=== PATIENT | female | born 1995 | race Caucasian/White ===

== ENCOUNTER 2018-04-07 07:57 | Emergency (ER) | payer BC ==
[2018-04-07] MEDS ORDERED: Tetracaine HCl/PF 0.5% 4 ML Bottle EYERT ONE (07:59)
[2018-04-07] MEDS ORDERED: Fluorescein 1 MG Ophth Strip EYERT ONE (07:59)
[2018-04-07 08:09] VITALS: BP 108/85
--- NOTE | 2018-04-07 08:27 | EDM.PDOC ---
ED HPI GENERAL MEDICAL PROBLEM - General Chief Complaint: Eye Problems Stated Complaint: EYE ABRASION Time Seen by Provider: 04/07/18 08:02 Source of Information: Reports: Patient History Limitations: Reports: No Limitations - History of Present Illness INITIAL COMMENTS - FREE TEXT/NARRATIVE: This 22 yo female patient reports to the ED with right eye irritation that began this morning. The patient reports she was noticing that her contacts were very dry yesterday, but did not have any difficulties getting the lens out. This morning, the patient reports she woke up to increased pain in her right eye. The patient denies any sensation of a foreign body in her eye at this time , but reports blurred vision in the right eye. Onset: Today Duration: Hour(s):, Constant Location: Reports: Face (right eye), Lower Extremity, Left Quality: Reports: Ache, Dull Severity: Moderate Improves with: Reports: None Worsens with: Reports: None Associated Symptoms: Reports: No Other Symptoms - Related Data Allergies Allergy/AdvReac Type Severity Reaction Status Date / Time No Known Allergies Allergy Verified 04/07/18 08:02 Home Meds: Home Meds . [No Known Home Meds] 09/12/16 [History] Past Medical History - Past Health History Medical/Surgical History: Denies Medical/Surgical History - Past Surgical History HEENT Surgical History: Reports: Oral Surgery Other HEENT Surgeries/Procedures: [place] teeth Social & Family History - Family History Family Medical History: Noncontributory - Tobacco Use Smoking Status *Q: Never Smoker Second Hand Smoke Exposure: No - Caffeine Use Caffeine Use: Reports: Coffee ED ROS GENERAL - Review of Systems Review Of Systems: ROS reveals no pertinent complaints other than HPI. ED EXAM GENERAL W FULL EYE - Physical Exam Exam: See Below Exam Limited By: No Limitations General Appearance: Alert, WD/WN, Mild Distress Eye Exam: Right Eye: Conjunctival Injection, Corneal Abrasion, Left Eye: Normal Inspection, Bilateral Eye: EOMI, PERRL Eyelids: Bilateral: Normal Appearance Conjunctiva & Sclera: Right: Injected Cornea Exam: Right: Corneal Abrasion Extraocular Movements: Bilateral: Intact Pupils: Normal Accommodation Pupillary Size: Bilateral: 5 mm Pupillary Reaction: Bilateral: Brisk Anterior Chamber: Bilateral: Normal Appearance Posterior Chamber: Bilateral: Normal Funduscopic Ears: Normal External Exam, Normal Canal, Hearing Grossly Normal, Normal TMs Nose: Normal Inspection, Normal Mucosa, No Blood Throat/Mouth: Normal Inspection, Normal Lips, Normal Teeth, Normal Gums, Normal Oropharynx, Normal Voice, No Airway Compromise Head: Atraumatic, Normocephalic Neck: Normal Inspection, Supple, Non-Tender, Full Range of Motion Respiratory/Chest: No Respiratory Distress, Lungs Clear, Normal Breath Sounds, No Accessory Muscle Use, Chest Non-Tender Cardiovascular: Normal Peripheral Pulses, Regular Rate, Rhythm, No Edema, No Gallop, No JVD, No Murmur, No Rub GI/Abdominal: Normal Bowel Sounds, Soft, Non-Tender, No Organomegaly, No Distention, No Abnormal Bruit, No Mass (Female) Exam: Deferred Rectal (Female) Exam: Deferred Back Exam: Normal Inspection, Full Range of Motion, NT Extremities: Normal Inspection, Normal Range of Motion, Non-Tender, Normal Capillary Refill, No Pedal Edema Neurological: Alert, Oriented, CN II-XII Intact, Normal Cognition, Normal Gait, Normal Reflexes, No Motor/Sensory Deficits Psychiatric: Normal Affect, Normal Mood Skin Exam: Warm, Dry, Intact, Normal Color, No Rash Lymphatic: No Adenopathy ED EYE w/ Add Procedure - Eye Procedure Alcaine Drops Administered: Yes Eye FB Removal: no Removal w/ Cotton Swab, no Removal w/ Needle, no Other Antibiotic Oinment/Drps Admin: Right Eye Progress: Corneal abrasion identified. Course - Vital Signs Last Recorded V/S: Last Vital Signs Temp 37.1 C 04/07/18 08:00 Pulse 91 04/07/18 08:00 Resp 16 04/07/18 08:00 BP 108/85 04/07/18 08:00 Pulse Ox 98 04/07/18 08:00 - Orders/Labs/Meds Orders: Active Orders 24 hr Category Date Time Status Gentamicin [Gentak 0.3% Ophth Oint] Med 04/07/18 09:00 Ordered 1 gm EYERT TID Medication Orders Gentamicin Sulfate (Gentak 0.3% Ophth Oint) 1 gm EYERT TID [facility] Meds: Medications Generic Name Dose Route Start Last Admin Trade Name Freq PRN Reason Stop Dose Admin Gentamicin Sulfate 1 gm 04/07/18 09:00 Gentak 0.3% Ophth Oint EYERT TID [facility] Discontinued Medications Generic Name Dose Route Start Last Admin Trade Name Freq PRN Reason Stop Dose Admin Fluorescein Sodium 1 mg 04/07/18 07:59 04/07/18 08:11 Ful-Pooja EYERT 04/07/18 08:00 1 mg ONETIME ONE Administration Tetracaine HCl 1 ml 04/07/18 07:59 04/07/18 08:11 Tetracaine 0.5% Steri-Unit Natalie EYERT 04/07/18 08:00 2 drop ASDIRECTED ONE Administration Departure - Departure Time of Disposition: 08:22 Disposition: Home, Self-Care 01 Condition: Fair Clinical Impression: Corneal abrasion Qualifiers: Encounter type: initial encounter Laterality: right Qualified Code(s): S05.01XA - Injury of conjunctiva and corneal abrasion without foreign body, right eye, initial encounter - Discharge Information *PRESCRIPTION DRUG MONITORING PROGRAM REVIEWED*: Not Applicable *COPY OF PRESCRIPTION DRUG MONITORING REPORT IN PATIENT EDUARDO: Not Applicable Instructions: Corneal Abrasion, [id number] Forms: ED Department Discharge Care Plan Goals: The patient was advised of the examination results during the visit. The patient was administered Tetracaine drops and Fluorescein to the right eye during the visit. The patient was discharged with Gentamicin Ophthalmic ointment to apply a 1/4 inch ribbon to the lower right eye lid 4 times per day for 7 days. The patient should avoid wearing her contacts while using the antibiotic ointment. If the patient has any additional symptoms or concerns, the patient should follow-up with her eye doctor, her primary care facility or return to the emergency department. - My Orders Last 24 Hours: My Active Orders 04/07/18 09:00 Gentamicin [Gentak 0.3% Ophth Oint] 1 gm EYERT TID - Assessment/Plan Last 24 Hours: My Active Orders 04/07/18 09:00 Gentamicin [Gentak 0.3% Ophth Oint] 1 gm EYERT TID
== END 2018-04-07 08:55 | disposition home or self-care (01) ==
LOC: DL.ED 07:57
DX: S05.01XA Injury of conjunctiva and corneal abrasion without foreign body, right eye, initial encounter (principal); X58.XXXA Exposure to other specified factors, initial encounter
CPT/HCPCS: 99283; A9270

== ENCOUNTER 2021-09-16 11:29 | Emergency (ER) | payer SELFPAY ==
--- NOTE | 2021-09-16 11:36 | EDM.PDOC ---
ED HPI GENERAL MEDICAL PROBLEM - General Chief Complaint: Laceration Stated Complaint: LACERATED HAND Time Seen by Provider: 09/16/21 11:34 Source of Information: Reports: Patient, RN, RN Notes Reviewed History Limitations: Reports: No Limitations - History of Present Illness INITIAL COMMENTS - FREE TEXT/NARRATIVE: Pt presents to ER with c/o laceration to right hand on a food slicer. Denies any other injury. Last Tetanus vaccine >10yrs ago per pt.. Onset: Today, Sudden Duration: Constant Severity: Mild Improves with: Reports: None Worsens with: Reports: None Associated Symptoms: Reports: No Other Symptoms - Related Data Allergies Allergy/AdvReac Type Severity Reaction Status Date / Time No Known Allergies Allergy Verified 04/07/18 08:02 Home Meds: Home Meds . [No Known Home Meds] 09/12/16 [History] Past Medical History - Past Health History Medical/Surgical History: Denies Medical/Surgical History - Past Surgical History HEENT Surgical History: Reports: Oral Surgery Other HEENT Surgeries/Procedures: [place] teeth Social & Family History - Family History Family Medical History: No Pertinent Family History - Caffeine Use Caffeine Use: Reports: Coffee - Living Situation & Occupation Living situation: Reports: with Family Review of Systems - Review of Systems Review Of Systems: Comprehensive ROS is negative, except as noted in HPI. ED EXAM, GENERAL - Physical Exam Exam: See Below Exam Limited By: No Limitations General Appearance: Alert, WD/WN, No Apparent Distress Throat/Mouth: Normal Voice, No Airway Compromise Head: Atraumatic, Normocephalic Respiratory/Chest: No Respiratory Distress Cardiovascular: Normal Peripheral Pulses Extremities: Normal Range of Motion, Normal Capillary Refill, Other (The ulnar aspect of the Rt hand has a superficial 0.5cm x 2.5cm flap lac. No active bleeding.) Neurological: Alert, Oriented, No Motor/Sensory Deficits Psychiatric: Normal Mood Skin Exam: Warm, Dry Course - Orders/Labs/Meds Orders: Active Orders 24 hr Category Date Time Status Vaccine to be Administered/Admin Charge [RC] ASDIRECTED Care 09/16/21 11:42 Ordered Meds: Medications Discontinued Medications Generic Name Dose Route Start Last Admin Trade Name Freq PRN Reason Stop Dose Admin Diphtheria/Tetanus/Acell Pertussis 0.5 ml 09/16/21 11:42 Diphtheria,Pertussis(Acell),Tetanus Vaccine 0.5 Ml Syringe IM 12/24/21 11:43 .ONCE ONE - Re-Assessments/Exams Free Text/Narrative Re-Assessment/Exam: 09/16/21 11:47 Rt hand lac. cleansed and steri-stripped by RN. No procedural wound care by physician. Departure - Departure Time of Disposition: 11:48 Disposition: Home, Self-Care 01 Condition: Good Clinical Impression: Laceration of right hand Qualifiers: Encounter type: initial encounter Foreign body presence: without foreign body Qualified Code(s): S61.411A - Laceration without foreign body of right hand, initial encounter - Discharge Information *PRESCRIPTION DRUG MONITORING PROGRAM REVIEWED*: Not Applicable *COPY OF PRESCRIPTION DRUG MONITORING REPORT IN PATIENT EDUARDO: Not Applicable Instructions: Sutures, [place], or Adhesive Wound Closure, [id number] Forms: ED Department Discharge Additional Instructions: Follow up in clinic if any further concerns. - My Orders Last 24 Hours: My Active Orders 09/16/21 11:42 Vaccine to be Administered/Admin Charge [RC] ASDIRECTED - Assessment/Plan Last 24 Hours: My Active Orders 09/16/21 11:42 Vaccine to be Administered/Admin Charge [RC] ASDIRECTED
[2021-09-16] MEDS ORDERED: Diphtheria,Pertussis(Acell),Tetanus Vaccine 0.5 ML Syringe IM ONE (11:42)
[2021-09-16 12:12] VITALS: BP 117/89
== END 2021-09-16 12:05 | disposition home or self-care (01) ==
LOC: DL.ED 11:29
DX: S61.411A Laceration without foreign body of right hand, initial encounter (principal); Z23 Encounter for immunization; W26.8XXA Contact with other sharp object(s), not elsewhere classified, initial encounter
CPT/HCPCS: 90471; 90715; 99282

== ENCOUNTER 2024-06-01 10:07 | Emergency (ER) | payer SELFPAY ==
[2024-06-01 10:32] VITALS: BP 127/88; PULSE 112
[2024-06-01] MEDS ORDERED: Sodium Chloride 0.9% 10 ML Syringe FLUSH PRN (10:40)
[2024-06-01] MEDS: diphenhydrAMINE 50 MG/ML SDV IVPUSH ONE (11:02)
[2024-06-01] MEDS: Famotidine 20 MG/2 ML SDV IVPUSH ONE (11:04)
[2024-06-01] MEDS: Dexamethasone 4 MG/ML SDV IVPUSH ONE (11:10)
== END 2024-06-01 11:32 | disposition home or self-care (01) ==
LOC: DL.ED 10:07
DX: L50.1 Idiopathic urticaria (principal)
CPT/HCPCS: 96374; 96375; 99283; J1200; J3490

== ENCOUNTER 2025-06-17 07:35 | Emergency (ER) | payer SELFPAY ==
[2025-06-17 08:16] LABS: BASOPHILS PERCENT AUTO 0.7 % (0.0-1.0); EOSINOPHILS PERCENT AUTO 3.3 % (1.0-3.0); LYMPHOCYTES PERCENT AUTO 27.9 % (20.5-50.1); MONOCYTES PERCENT AUTO 8.2 % (2-8); NEUTROPHILS PERCENT AUTO 59.9 % (42.2-75.2); PLATELET COUNT,PLT 236 10^3/uL (150-450); RED BLOOD CELL COUNT 4.30 10^6/uL (4.2-5.4); WHITE BLOOD CELL COUNT,WBC 6.1 10^3/uL (5.0-10.0)
[2025-06-17 08:33] LABS: HCG QUALITATIVE,SERUM NEGATIVE (NEGATIVE)
[2025-06-17 08:34] LABS: INR 0.9 (0.9-1.2); PTT,PARTIAL THROMBOPLSTIN TIME 23.9 SEC (22.0-34.0)
[2025-06-17 08:37] LABS: A/G RATIO 1.5; ALANINE AMINOTRANSFERASE,ALT 19 U/L (14-59); ASPARTATE AMNIOTRANSFERASE,AST 12 U/L (15-37); BILIRUBIN TOTAL 0.7 mg/dL (0.2-1.0); BLOOD UREA NITROGEN,BUN 8 mg/dL (7-18); CARBON DIOXIDE,CO2 29 mmol/L (21-32); CHLORIDE,CL 105 mmol/L (98-107); CREATININE 0.58 mg/dL (0.55-1.02); EST CRCL DRUG DOSING (CG) 121.97 mL/min; ESTIMATED GFR 124 mL/min (>=60); GLUCOSE RANDOM 73 mg/dL (70-99); POTASSIUM,K 3.9 mmol/L (3.5-5.1); PROTEIN TOTAL,TP 7.6 g/dL (6.4-8.2); SODIUM,NA 141 mmol/L (136-145)
[2025-06-17 08:57] VITALS: BP 125/87; PULSE 89
== END 2025-06-17 08:56 | disposition home or self-care (01) ==
LOC: DL.ED 07:35
DX: N93.8 Other specified abnormal uterine and vaginal bleeding (principal)
CPT/HCPCS: 36415; 80053; 84703; 85025; 85610; 85730; 99284